=== PATIENT | female | born 2000 | race Caucasian/White ===

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

== ENCOUNTER → 2024-04-04 | Outpatient (CLI) | payer OTHER | END | disposition home or self-care (01) | LOC: LAB SHORT 16:11 → LAB 16:11 | DX: J02.9 Acute pharyngitis, unspecified (principal) | CPT/HCPCS: 87081 ==

== ENCOUNTER → 2024-10-25 | Outpatient (CLI) | payer OTHER | LOC: LAB 18:13 → LAB SHORT 18:13 | DX: Z12.4 Encounter for screening for malignant neoplasm of cervix (principal) | CPT/HCPCS: G0123 ==

== ENCOUNTER 2025-02-19 20:02 | Emergency (ER) | payer OTHER ==
[~2025-02-19] VITALS: Ht 157.5 cm; Wt 90.7 kg
[2025-02-19 20:14] VITALS: BP 123/77
[2025-02-19] MEDS ORDERED: Ketorolac Tromethamine 15mg Vial IM ONE (22:50)
[2025-02-19] MEDS ORDERED: RX Prepack 6 Tabs Oxycodone 5mg UD ONE (23:05)
[2025-02-19] MEDS ORDERED: Percocet 5-3251 EACH PO (23:39)
== END 2025-02-19 23:45 | disposition home or self-care (01) ==
LOC: ER 20:02
DX: S92.352A Displaced fracture of fifth metatarsal bone, left foot, initial encounter for closed fracture (principal); M25.561 Pain in right knee; W01.0XXA Fall on same level from slipping, tripping and stumbling without subsequent striking against object, initial encounter; Z88.0 Allergy status to penicillin; Z79.899 Other long term (current) drug therapy
CPT/HCPCS: 73610; 96372; 99283-25; A9270; J1885